=== PATIENT | female | born 2000 | race Caucasian/White ===

== ENCOUNTER 2022-11-04 10:30 | Outpatient (CLI) | payer BC, SELFPAY ==
[2022-11-04 17:52] LABS: Chloride* 106 mmol/L (96-114); Potassium* 4.3 mmol/L (3.6-5.1); Sodium* 139 mmol/L (135-149)
[2022-11-04 17:54] LABS: Creatinine* 0.6 mg/dL (0.5-1.5); Estimated Glomerular Filt Rate 132 ml/min
[2022-11-04 17:55] LABS: Blood Urea Nitrogen* 9 mg/dL (5-24); Calcium* 9.4 mg/dL (8.4-10.6); Carbon Dioxide* 27 mmol/L (20-32); Glucose* 92 mg/dL (60-115)
[2022-11-04 18:25] LABS: Ferritin* 25.9 ng/mL (6.24-137.0)
[2022-11-04 18:58] LABS: TSH With Reflex to FT4* 0.596 uIU/mL (0.270-4.200)
== END 2022-11-04 10:31 | disposition home or self-care (01) ==
PROVIDERS: PCP Emergency Medicine; Visit Provider Emergency Medicine
DX: R42 Dizziness and giddiness (principal)
CPT/HCPCS: 80048; 82728; 84443

== ENCOUNTER 2022-12-02 12:46 | Outpatient (CLI) | payer BC, SELFPAY | END 2022-12-02 12:47 | disposition home or self-care (01) | PROVIDERS: PCP Emergency Medicine; Visit Provider Emergency Medicine | DX: R42 Dizziness and giddiness (principal) | CPT/HCPCS: 93306 ==